=== PATIENT | female | born 1980 | race American Indian/Alaskan Native ===

== ENCOUNTER 2018-01-15 13:17 | Emergency (ER) | payer OTHER, BC ==
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
[2018-01-15] MEDS ORDERED: TYLENOL PO ONE (16:03)
[2018-01-15] MEDS ORDERED: MOTRIN PO ONE (16:03)
--- NOTE | 2018-01-15 16:59 | XRay Report ---
FINAL REPORT PROCEDURE: Right wrist. TECHNIQUE: AP and lateral views. HISTORY: Right wrist pain. COMPARISON: No prior studies are available for comparison. FINDINGS: The bones appear intact without fracture or dislocation. The joint spaces appear normal. The soft tissues are unremarkable. IMPRESSION: Normal study.
--- NOTE | 2018-01-15 17:38 | XRay Report ---
FINAL REPORT PROCEDURE: Left shoulder. TECHNIQUE: Three views. HISTORY: left shoulder pain COMPARISON: No prior studies are available for comparison. FINDINGS: The bones appear intact without fracture or dislocation. The joint spaces appear normal. The soft tissues are unremarkable. IMPRESSION: Normal study.
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
[2018-01-15 17:56] VITALS: BP 118/68
== END 2018-01-15 17:54 | disposition home or self-care (01) ==
LOC: ED 13:17
DX: S63.592A Other specified sprain of left wrist, initial encounter (principal); V89.2XXA Person injured in unspecified motor-vehicle accident, traffic, initial encounter; Y93.89 Activity, other specified; Y92.89 Other specified places as the place of occurrence of the external cause; Y99.8 Other external cause status
CPT/HCPCS: 71046; 99283

== ENCOUNTER 2019-04-02 14:05 | Emergency (ER) | payer BC ==
--- NOTE | 2019-04-02 14:37 | Event Note ---
ED Screening Note Date of service: 04/02/19 Time: 14:33 ED Screening Note: This is a 39 y.o. F. that presents to the ER with right 3rd finger pain. Patient went to a Orthopedic Surgeon last week and had a nerve study which found carpal tunnel syndrome. Denies injury This initial assessment/diagnostic orders/clinical plan/treatment(s) is/are subject to change based on patients health status, clinical progression and re- assessment by fellow clinical providers in the ED. Further treatment and workup at subsequent clinical providers discretion. Patient/guardian urged not to elope from the ED as their condition may be serious if not clinically assessed and managed. Initial orders include: XR right fingers
--- NOTE | 2019-04-02 15:37 | XRay Report ---
Right fingers, 3 views INDICATION: 3rd PIP pain, decreased ROM. COMPARISON: None. IMPRESSION: No acute osseous or soft tissue abnormality. No significant DJD. Signer Name: Lester Quijano Jr, MD Signed: 04/02/2019 3:33 PM Workstation Name: [id number]
[2019-04-02] MEDS ORDERED: DECADRON IM ONE (16:07)
[2019-04-02] MEDS ORDERED: TORADOL IM ONE (16:07)
[2019-04-02] MEDS ORDERED: PEPCID PO ONE (16:07)
--- NOTE | 2019-04-02 17:17 | Emergency Department Report ---
ED Upper Extremity Inj HPI - General Chief Complaint: Extremity Injury, Upper Stated Complaint: RT MIDDLE FINGER STUCK/PAIN Time Seen by Provider: 04/02/19 14:33 Source: patient Mode of arrival: Ambulatory Limitations: No Limitations - History of Present Illness Initial Comments: 39-year-old female presents to the hospital complaining of right middle finger pain and stiffness 1 week. 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 No trauma reported. Patient recently had outpatient nerve test done on March 08 that showed signs of carpal tunnel. Patient states the needle was placed in the nerves of her fingers as well a her neck. The last week she has had pain along the whole middle finger with swelling and also has pain and extending to the proximal forearm. Patient denies fever or drainage. She has been prescribed gabapentin, tramadol, and unknown other medication for nerve pain. He should discontinue all these medications she states is not working. She denies being on a steroid currently. - Related Data Previous Rx's Medication Instructions Recorded Last Taken Type Cyclobenzaprine HCl [Flexeril 5 MG 5 mg PO TID #30 tab 01/15/18 Unknown Rx TAB] Diclofenac Sodium [Voltaren] 100 gm TP Q6H PRN #1 gel..gram. 01/15/18 Unknown Rx Famotidine [Pepcid] 20 mg PO BID #14 tablet 04/02/19 Unknown Rx HYDROcodone/APAP 5-325 [[place] 1 each PO Q4HR PRN #14 tablet 04/02/19 Unknown Rx 5/325] Ibuprofen [Motrin] 800 mg PO Q8HR PRN #30 tablet 04/02/19 Unknown Rx predniSONE [Deltasone] 20 mg PO BID #10 tab 04/02/19 Unknown Rx Allergies Allergy/AdvReac Type Severity Reaction Status Date / Time No Known Allergies Allergy Unverified 01/15/18 13:27 ED Review of Systems ROS: Stated complaint: RT MIDDLE FINGER STUCK/PAIN Other details as noted in HPI Comment: All other systems reviewed and negative ED Past Medical Hx - Past Medical History Previous Medical History?: No - Surgical History Past Surgical History?: No - Social History Smoking Status: Never Smoker Substance Use Type: None - Medications Home Medications: Home Medications Medication Instructions Recorded Confirmed Last Taken Type Cyclobenzaprine HCl [Flexeril 5 MG 5 mg PO TID #30 tab 01/15/18 Unknown Rx TAB] Diclofenac Sodium [Voltaren] 100 gm TP Q6H PRN #1 gel..gram. 01/15/18 Unknown Rx Famotidine [Pepcid] 20 mg PO BID #14 tablet 04/02/19 Unknown Rx HYDROcodone/APAP 5-325 [[place] 1 each PO Q4HR PRN #14 tablet 04/02/19 Unknown Rx 5/325] Ibuprofen [Motrin] 800 mg PO Q8HR PRN #30 tablet 04/02/19 Unknown Rx predniSONE [Deltasone] 20 mg PO BID #10 tab 04/02/19 Unknown Rx ED Physical Exam - General Limitations: No Limitations - Other Other exam information: Gen.: No acute distress Head: Atraumatic Eyes: Normal appearance ENT: Moist mucous membranes Neck: Normal appearance Chest: Clear to auscultation bilaterally Cardiovascular: Regular rate and rhythm Abdomen: Normal appearance, soft, nontender, no rebound or guarding, normal bowel sounds Back: Normal appearance, nontender Extremity: Patient has mild swelling to the radial side of the right forearm adjacent to the wrists. She also has mild swelling to the right middle finger and tenderness at the MTP, PIP, and DIP joints. There is not a sausage digit appearance. Patient has pain with both flexion and extension as well as palpation. No warmth or erythema noted. Patient able to fully flex finger but has limited flexion at the DIP joint. Neuro: Alert, clear speech, no focal motor or sensory deficit Psychiatric: Appropriate Skin: No rash ED Course Vital Signs 04/02/19 14:33 Temperature 97.7 F Pulse Rate 77 Respiratory 16 Rate Blood Pressure 149/93 O2 Sat by Pulse 100 Oximetry ED Medical Decision Making - Radiology Data Radiology results: report reviewed Right fingers, 3 views INDICATION: 3rd PIP pain, decreased ROM. COMPARISON: None. IMPRESSION: No acute osseous or soft tissue abnormality. No significant DJD. - Medical Decision Making Patient having ongoing outpatient workup for her neuropathy type of pain arthralgias to her hands. X-ray unremarkable. Patient discontinued her medications because they were helping. She supposedly follow up with orthopedic specialists in several weeks. Patient presents here because she could not take the discomfort anymore. Differential includes flexor tenderness in the right is however, patient does not have a sausage digit, warmth, or erythema. Symptoms have been ongoing 1 week. Patient placed in a splint for comfort and will be discharged with additional meds - Differential Diagnosis fracture, contusion, sprain Critical Care Time: No Critical care attestation.: If time is entered above; I have spent that time in minutes in the direct care of this critically ill patient, excluding procedure time. ED Disposition Clinical Impression: Carpal tunnel syndrome, Pain of right middle finger Disposition: TO HOME OR SELFCARE Is pt being admited?: No Does the pt Need Aspirin: No Condition: Stable Instructions: Carpal Tunnel Syndrome (ED), Arthralgia (ED) Additional Instructions: Take the medication as prescribed. Follow-up with your doctor or with the doctor/clinic provided. Return if symptoms worsen as indicated by your discharge instructions. Prescriptions: predniSONE [Deltasone] 20 mg PO BID #10 tab Ibuprofen [Motrin] 800 mg PO Q8HR PRN #30 tablet PRN Reason: Pain, Moderate (4-6) HYDROcodone/APAP 5-325 [[place] 5/325] 1 each PO Q4HR PRN #14 tablet PRN Reason: Pain Famotidine [Pepcid] 20 mg PO BID #14 tablet Referrals: STEFANIA THOMPSON MD [Referring] - 3-5 Days your, orthopedic doctor [Other] - 3-5 Days Time of Disposition: 17:19
[2019-04-02 17:37] VITALS: BP 146/97
== END 2019-04-02 17:37 | disposition home or self-care (01) ==
LOC: ED 14:05
DX: G56.01 Carpal tunnel syndrome, right upper limb (principal)
CPT/HCPCS: 29125; 73140; 96372; 99284; J1100; J1885

== ENCOUNTER 2019-07-09 11:20 | Emergency (ER) | payer BC ==
[2019-07-09 12:18] LABS: HCG Qualitative,Urine Negative (Negative)
[2019-07-09 12:20] LABS: Bacteria,Urine 1+ /HPF (Negative); Bilirubin,Urine NEG (Negative); Blood,Urine LG (Negative); Color,Urine Yellow (Yellow); Mucus,Urine FEW /HPF; Urobilinogen,Urine < 2.0 mg/dL (<2.0)
[2019-07-09 12:26] LABS: RBC,Urine > 182.0 /HPF (0.0-6.0); WBC,Urine > 182.0 /HPF (0.0-6.0)
[2019-07-09 12:37] VITALS: BP 147/95
--- NOTE | 2019-07-09 12:41 | Emergency Department Report ---
ED Female HPI - General Chief complaint: Abdominal Pain Stated complaint: ABD PAIN/BLOOD IN URINE Time Seen by Provider: 07/09/19 12:34 Source: patient Mode of arrival: Ambulatory Limitations: No Limitations - History of Present Illness Initial comments: This is a 39-year-old female that presents to the ER with pelvic pressure, dysuria, urinary frequency, hematuria, and flank pain for 2 days. Patient reports flank pain is only during urination. LMP in years due to implanted IUD. She is taking ibuprofen which is controlling pain. Patient reports history of kidney stone but states this pain is nothing compared to kidney stones and don't think related. Denies vaginal discharge, risk of , fever, chills, nausea or vomiting. MD Complaint: dysuria, pelvic pain Onset/Timin -: days(s) Location: suprapubic Radiation: L flank Severity: mild Severity scale (0 -10): 3 Quality: burning, other (pressure) Consistency: intermittent Improves with: none Worsens with: urination Are you Now?: No Last Menstrual Period: 06/23/17 (IUD) EDC: 03/30/18 Associated Symptoms: abdominal pain, dysuria, hematuria. denies: vaginal discharge, vaginal bleeding, nausea/vomiting, fever/chills, headaches, rash, seizure, shortness of breath - Related Data Sexually active: Yes Previous Rx's Medication Instructions Recorded Last Taken Type Cyclobenzaprine HCl [Flexeril 5 MG 5 mg PO TID #30 tab 01/15/18 Unknown Rx TAB] Diclofenac Sodium [Voltaren] 100 gm TP Q6H PRN #1 gel..gram. 01/15/18 Unknown Rx Famotidine [Pepcid] 20 mg PO BID #14 tablet 04/02/19 Unknown Rx HYDROcodone/APAP 5-325 [[place] 1 each PO Q4HR PRN #14 tablet 04/02/19 Unknown Rx 5/325] predniSONE [Deltasone] 20 mg PO BID #10 tab 04/02/19 Unknown Rx Ibuprofen [Motrin 800 MG tab] 800 mg PO Q8HR PRN #30 tablet 07/09/19 Unknown Rx Sulfamethoxazole/Trimethoprim 1 each PO BID #6 tablet 07/09/19 Unknown Rx [Bactrim DS TAB] Allergies Allergy/AdvReac Type Severity Reaction Status Date / Time No Known Allergies Allergy Verified 07/09/19 11:28 ED Review of Systems ROS: Stated complaint: ABD PAIN/BLOOD IN URINE Other details as noted in HPI Constitutional: denies: chills, fever Respiratory: denies: cough, shortness of breath, wheezing Cardiovascular: denies: chest pain, palpitations Gastrointestinal: abdominal pain. denies: nausea, diarrhea Genitourinary: dysuria, frequency, hematuria. denies: urgency, discharge, abnormal menses, dyspareunia Skin: denies: rash, lesions Neurological: denies: headache, weakness, paresthesias Psychiatric: denies: anxiety, depression ED Past Medical Hx - Past Medical History Additional medical history: KIDNEY STONES - Social History Smoking Status: Never Smoker Substance Use Type: None - Medications Home Medications: Home Medications Medication Instructions Recorded Confirmed Last Taken Type Cyclobenzaprine HCl [Flexeril 5 MG 5 mg PO TID #30 tab 01/15/18 Unknown Rx TAB] Diclofenac Sodium [Voltaren] 100 gm TP Q6H PRN #1 gel..gram. 01/15/18 Unknown Rx Famotidine [Pepcid] 20 mg PO BID #14 tablet 04/02/19 Unknown Rx HYDROcodone/APAP 5-325 [[place] 1 each PO Q4HR PRN #14 tablet 04/02/19 Unknown Rx 5/325] predniSONE [Deltasone] 20 mg PO BID #10 tab 04/02/19 Unknown Rx Ibuprofen [Motrin 800 MG tab] 800 mg PO Q8HR PRN #30 tablet 07/09/19 Unknown Rx Sulfamethoxazole/Trimethoprim 1 each PO BID #6 tablet 07/09/19 Unknown Rx [Bactrim DS TAB] ED Physical Exam - General Limitations: No Limitations General appearance: alert, in no apparent distress, obese - Respiratory Respiratory exam: Present: normal lung sounds bilaterally. Absent: respiratory distress - Cardiovascular Cardiovascular Exam: Present: regular rate, normal rhythm. Absent: systolic murmur, diastolic murmur, rubs, gallop - GI/Abdominal GI/Abdominal exam: Present: soft, normal bowel sounds. Absent: distended, tenderness, guarding, rebound, rigid - Back Exam Back exam: Absent: CVA tenderness (R), CVA tenderness (L) - Neurological Exam Neurological exam: Present: alert, oriented X3, normal gait - Psychiatric Psychiatric exam: Present: normal affect, normal mood - Skin Skin exam: Present: warm, dry, intact, normal color. Absent: rash ED Medical Decision Making - Lab Data Lab Results 07/09/19 Range/Units 11:48 Urine Color Yellow (Yellow) Urine Turbidity Cloudy (Clear) Urine pH 6.0 (5.0-7.0) Ur Specific [place] 1.016 (1.003-1.030) Urine Protein 100 mg/dl (Negative) mg/dL Urine Glucose (UA) Neg (Negative) mg/dL Urine Ketones Neg (Negative) mg/dL Urine Blood Lg (Negative) Urine Nitrite Neg (Negative) Ur Reducing Substances Not Reportable Urine Bilirubin Neg (Negative) Urine Ictotest Not Reportable Urine Urobilinogen < 2.0 (<2.0) mg/dL Ur Leukocyte Esterase Lg (Negative) Urine WBC (Auto) > 182.0 H (0.0-6.0) /HPF Urine RBC (Auto) > 182.0 (0.0-6.0) /HPF U Epithel Cells (Auto) 4.0 (0-13.0) /HPF Urine Bacteria (Auto) 1+ (Negative) /HPF Urine WBC Clumps 2+ /HPF Urine Mucus Few /HPF Urine HCG, Qual Negative (Negative) - Medical Decision Making This is a 39 y.o. F. that presents to the ER with pelvic cramping, dysuria, urinary frequency, and hematuria for 2 days. Labs obtained. Negative test. Nontender to palpation on abdominal exam, negative CVA tenderness. Urinalysis positive for acute cystitis. Start bactrim DS and ibuprofen for acute cystitis. Referral to PCP for follow up. Return to the ER with worsening symptoms. Patient discharged home stable. - Differential Diagnosis Acute cystitis, pyelonephritis, nephrolithiasis Critical care attestation.: If time is entered above; I have spent that time in minutes in the direct care of this critically ill patient, excluding procedure time. ED Disposition Clinical Impression: Urinary frequency, Dysuria Acute cystitis Qualifiers: Hematuria presence: with hematuria Qualified Code(s): N30.01 - Acute cystitis with hematuria Hematuria Qualifiers: Hematuria type: other microscopic Qualified Code(s): R31.29 - Other microscopic hematuria; R31.2 - Other microscopic hematuria Disposition: TO HOME OR SELFCARE Is pt being admited?: No Condition: Stable Instructions: Abdominal Pain (ED), Urinary Tract Infection in Women (ED) Additional Instructions: Increase fluid intake to 1L-2L daily. Complete full course of antibiotics as prescribed. Follow-up with a primary care doctor in 3-5 days or if symptoms worsen and continue return to the emergency department as soon as possible. Prescriptions: Sulfamethoxazole/Trimethoprim [Bactrim DS TAB] 1 each PO BID #6 tablet Ibuprofen [Motrin 800 MG tab] 800 mg PO Q8HR PRN #30 tablet PRN Reason: Pain, Moderate (4-6) Referrals: [facility] [Provider Group] - 3-5 Days [facility] [Provider Group] - 3-5 Days [facility] [Provider Group] - 3-5 Days Forms: Work/School Release Form(ED) Time of Disposition: 13:07
== END 2019-07-09 13:47 | disposition home or self-care (01) ==
LOC: ED 11:20
DX: N30.01 Acute cystitis with hematuria (principal); N20.0 Calculus of kidney; Z79.1 Long term (current) use of non-steroidal anti-inflammatories (NSAID); Z79.899 Other long term (current) drug therapy
CPT/HCPCS: 81001; 81025

== ENCOUNTER 2021-09-17 01:37 | Emergency (ER) | payer BC ==
[2021-09-17] MEDS ORDERED: BENZONATATE 100 MG CAP PO ONE (02:15)
[2021-09-17] MEDS ORDERED: predniSONE 20 MG TAB PO ONE (02:15)
--- NOTE | 2021-09-17 02:16 | XRay Report ---
CHEST PA AND LATERAL VIEWS INDICATION: cough, URI X 1 WEEK. COMPARISON: 01/15/2018 FINDINGS: Support devices: None. Heart: Within normal limits. Lungs/Pleura: No acute pulmonary or pleural findings. IMPRESSION: 1. No acute findings. Signer Name: Armani Buchanan MD Signed: 09/17/2021 2:12 AM Workstation Name: [id number]
--- NOTE | 2021-09-17 02:31 | Emergency Department Report ---
- General Chief Complaint: Upper Respiratory Infection Stated Complaint: CHEST PAIN/COUGHING Source: patient Mode of arrival: Ambulatory Limitations: No Limitations - History of Present Illness Initial Comments: Patient is a 41-year-old -[place] female with no past medical history who presented to the ED with complaint of acute onset persistent nasal and sinus congestion, frontal sinus pressure, persistent dry cough for the last 1 week. Patient states that she has been taking [id number] medications with no relief. Patient states that she has not been able to sleep because of persisten t cough. Patient denies dizziness, syncope, chest pain, shortness of breath, sore throat, change in vision, headache, abdominal pain, hemoptysis, hematemesis, diarrhea, fever or chills. MD Complaint: cough, rhinorrhea, nasal congestion, sinus pain -: Sudden, week(s) (1) Severity: moderate Severity scale (0 -10): 5 Quality: dull, aching Consistency: constant Improves With: nothing Worsens With: nothing Context: sick contacts Associated Symptoms: headache, rhinorrhea, nasal congestion, cough. denies: fever, chills, myalgias, sore throat, stiff neck, chest pain, shortness of breath, abdominal pain, nausea, vomiting, diarrhea, dysuria, rash, confusion, right sweats, weight loss, epistaxis, hoarseness, other Treatments Prior to Arrival: none - Related Data Previous Rx's Medication Instructions Recorded Last Taken Type Cyclobenzaprine HCl [Flexeril 5 MG 5 mg PO TID #30 tab 01/15/18 Unknown Rx TAB] Diclofenac Sodium [Voltaren] 100 gm TP Q6H PRN #1 gel..gram. 01/15/18 Unknown Rx Famotidine [Pepcid] 20 mg PO BID #14 tablet 04/02/19 Unknown Rx HYDROcodone/APAP 5-325 [[place] 1 each PO Q4HR PRN #14 tablet 04/02/19 Unknown Rx 5/325] predniSONE [Deltasone] 20 mg PO BID #10 tab 04/02/19 Unknown Rx Ibuprofen [Motrin 800 MG tab] 800 mg PO Q8HR PRN #30 tablet 07/09/19 Unknown Rx Sulfamethoxazole/Trimethoprim 1 each PO BID #6 tablet 07/09/19 Unknown Rx [Bactrim DS TAB] Azithromycin [Zithromax Z-RICHI] 250 mg PO DAILY #6 tab 09/17/21 Unknown Rx Benzonatate [Tessalon Perles] 100 mg PO Q8HR #30 cap 09/17/21 Unknown Rx Cetirizine HCl [Zyrtec 10mg tab] 10 mg PO DAILY #30 tab 09/17/21 Unknown Rx Ibuprofen [Motrin] 800 mg PO Q8HR PRN #24 tablet 09/17/21 Unknown Rx predniSONE [Deltasone] 40 mg PO QDAY #10 tab 09/17/21 Unknown Rx Allergies Allergy/AdvReac Type Severity Reaction Status Date / Time No Known Allergies Allergy Verified 07/09/19 11:28 ED Review of Systems ROS: Stated complaint: CHEST PAIN/COUGHING Other details as noted in HPI Constitutional: denies: chills, fever Eyes: denies: eye pain, eye discharge, vision change ENT: congestion, other (Sinus congestion and pressure). denies: ear pain, throat pain Respiratory: cough. denies: shortness of breath, wheezing Cardiovascular: denies: chest pain, palpitations Endocrine: no symptoms reported Gastrointestinal: denies: abdominal pain, nausea, diarrhea Genitourinary: denies: urgency, dysuria, frequency, hematuria, discharge Musculoskeletal: denies: back pain, joint swelling, arthralgia Skin: denies: rash, lesions Neurological: denies: headache, weakness, paresthesias Psychiatric: denies: anxiety, depression Hematological/Lymphatic: denies: easy bleeding, easy bruising ED Past Medical Hx - Past Medical History Previous Medical History?: Yes Additional medical history: KIDNEY STONES. Obesity - Surgical History Past Surgical History?: No - Social History Smoking Status: Never Smoker Substance Use Type: None - Medications Home Medications: Home Medications Medication Instructions Recorded Confirmed Last Taken Type Cyclobenzaprine HCl [Flexeril 5 MG 5 mg PO TID #30 tab 01/15/18 Unknown Rx TAB] Diclofenac Sodium [Voltaren] 100 gm TP Q6H PRN #1 gel..gram. 01/15/18 Unknown Rx Famotidine [Pepcid] 20 mg PO BID #14 tablet 04/02/19 Unknown Rx HYDROcodone/APAP 5-325 [[place] 1 each PO Q4HR PRN #14 tablet 04/02/19 Unknown Rx 5/325] predniSONE [Deltasone] 20 mg PO BID #10 tab 04/02/19 Unknown Rx Ibuprofen [Motrin 800 MG tab] 800 mg PO Q8HR PRN #30 tablet 07/09/19 Unknown Rx Sulfamethoxazole/Trimethoprim 1 each PO BID #6 tablet 07/09/19 Unknown Rx [Bactrim DS TAB] Azithromycin [Zithromax Z-RICHI] 250 mg PO DAILY #6 tab 09/17/21 Unknown Rx Benzonatate [Tessalon Perles] 100 mg PO Q8HR #30 cap 09/17/21 Unknown Rx Cetirizine HCl [Zyrtec 10mg tab] 10 mg PO DAILY #30 tab 09/17/21 Unknown Rx Ibuprofen [Motrin] 800 mg PO Q8HR PRN #24 tablet 09/17/21 Unknown Rx predniSONE [Deltasone] 40 mg PO QDAY #10 tab 09/17/21 Unknown Rx ED Physical Exam - General Limitations: No Limitations General appearance: alert, in no apparent distress - Head Head exam: Present: atraumatic, normocephalic, normal inspection - Eye Eye exam: Present: normal appearance, PERRL, EOMI Pupils: Present: normal accommodation - ENT ENT exam: Present: normal orophraynx, mucous membranes moist, TM's normal bilaterally, normal external ear exam, other (Grossly congested nasal passages) - Neck Neck exam: Present: normal inspection, full ROM. Absent: tenderness - Respiratory Respiratory exam: Present: normal lung sounds bilaterally. Absent: respiratory distress, wheezes, rales, rhonchi, stridor, chest wall tenderness, accessory muscle use, decreased breath sounds, prolonged expiratory - Cardiovascular Cardiovascular Exam: Present: normal rhythm, tachycardia, normal heart sounds. Absent: systolic murmur, diastolic murmur, rubs, gallop - GI/Abdominal GI/Abdominal exam: Present: soft, normal bowel sounds. Absent: tenderness, guarding, rebound, hyperactive bowel sounds, hypoactive bowel sounds, organomegaly - Extremities Exam Extremities exam: Present: normal inspection, full ROM, normal capillary refill - Back Exam Back exam: Present: normal inspection, full ROM. Absent: tenderness, CVA tenderness (R), CVA tenderness (L), muscle spasm, paraspinal tenderness - Neurological Exam Neurological exam: Present: alert, oriented X3, CN II-XII intact, normal gait, reflexes normal - Psychiatric Psychiatric exam: Present: normal affect, normal mood - Skin Skin exam: Present: warm, dry, intact, normal color. Absent: rash ED Course Vital Signs 09/17/21 01:39 Temperature 98.6 F Pulse Rate 100 H Respiratory 16 Rate Blood Pressure 169/109 [Right] O2 Sat by Pulse 98 Oximetry ED Medical Decision Making - Radiology Data Radiology results: report reviewed, image reviewed [facility] [address] [place] [address] XRay Report Signed Patient: RAY PANDEY MR#: [id number] : 1980 Acct:[id number] Age/Sex: 41 / F ADM Date: 09/17/21 Loc: ED Attending Dr: Ordering Physician: GEOVANNI DONALDSON Date of Service: 09/17/21 Procedure(s): XR chest routine 2V Accession Number(s): [id number] cc: GEOVANNI DONALDSON Fluoro Time In Minutes: CHEST PA AND LATERAL VIEWS INDICATION: cough, URI X 1 WEEK. COMPARISON: 01/15/2018 FINDINGS: Support devices: None. Heart: Within normal limits. Lungs/Pleura: No acute pulmonary or pleural findings. IMPRESSION: 1. No acute findings. Signer Name: Armani Buchanan MD Signed: 09/17/2021 2:12 AM Workstation Name: [id number] Transcribed By: FRANCO Dictated By: Armani Buchanan MD Electronically Authenticated By: Armani Buchanan MD Signed Date/Time: 09/17/21211 DD/ 0 TD/TT: - Medical Decision Making This is a 41-year-old -[place]namese female with no past medical history who presented to the ED with complaint of acute onset persistent nasal and sinus congestion, frontal sinus pressure, persistent dry cough for the last 1 week. Patient states that she has been taking [id number] medications with no relief. Patient states that she has not been able to sleep because of persistent cough. In the ED, patient is alert and oriented x3 and is not in any distress. Chest x-ray showed no acute cardiopulmonary abnormalities or pneumonitis. Patient was treated in the ED with cough medication and oral steroids. Patient was discharged home on medications and advised to follow-up with her primary care physician in 7 to 10 days for reevaluation or return to the ED immediately if symptoms get worse. - Differential Diagnosis Sinusitis; URI; Bronchitis; Pneumonia Critical care attestation.: If time is entered above; I have spent that time in minutes in the direct care of this critically ill patient, excluding procedure time. ED Disposition Clinical Impression: Acute upper respiratory infection Acute bronchitis Qualifiers: Bronchitis organism: other organism Qualified Code(s): J20.8 - Acute bronchitis due to other specified organisms Disposition: 01 HOME / SELF CARE / HOMELESS Is pt being admited?: No Does the pt Need Aspirin: No Condition: Stable Instructions: Acute Bronchitis, Adult, [id number], Upper Respiratory Infection, Adult, [id number], Acute Bronchitis (ED) Additional Instructions: The chest x-ray showed no acute cardiopulmonary abnormalities or pneumonitis. Your symptoms are likely due to sinusitis versus URI versus bronchitis. Therefore take medications with food, drink plenty of fluids and follow-up with your primary care physician in 5 to 7 days for reevaluation. Return to the ED immediately if symptoms get worse. Prescriptions: predniSONE [Deltasone] 40 mg PO QDAY #10 tab Ibuprofen [Motrin] 800 mg PO Q8HR PRN #24 tablet PRN Reason: Pain , Severe (7-10) Benzonatate [Tessalon Perles] 100 mg PO Q8HR #30 cap Azithromycin [Zithromax Z-RICHI] 250 mg PO DAILY #6 tab Cetirizine HCl [Zyrtec 10mg tab] 10 mg PO DAILY #30 tab Referrals: [facility] [Provider Group] - 7-10 days Forms: Work/School Release Form(ED) Time of Disposition: 02:35 Print Language: JORDANIAN
[2021-09-17 03:21] VITALS: BP 115/74
== END 2021-09-17 03:00 | disposition home or self-care (01) ==
LOC: ED 01:37
DX: J06.9 Acute upper respiratory infection, unspecified (principal); J20.9 Acute bronchitis, unspecified; Z98.890 Other specified postprocedural states
CPT/HCPCS: 71046; 99283